=== PATIENT | male | born 1985 | race African-American/Black ===

== ENCOUNTER 2016-10-05 08:03 | Emergency (ER) | payer OTHER ==
[~2016-10-05] VITALS: Ht 188 cm; Wt 118.9 kg
[~2016-10-05 08:03] MED LIST: CARDI-OMEGA1000 MG PO; CROHNS MED PO; HUMIRA40 MG/0.1 SC; K-DUR 10 MEQ T10 MEQ PO; LEVAQUIN 750MG750 M1 PO; MAGNESIUM250 M1 PO; MULTI VITAMINS1 TAB PO; NORCO 325 MG-51 TAB PO; PHARMASSURE ZIN50 MG PO; PHENERGAN 25 TA25 MG PO; PREDNISONE20 MG PO; PROAIR HFA0.09 MG/AC IH; TUSS PO; VENTOLIN0.09 MG IH; VITAMIND3 5000 PO; ZOFRAN 4MG T4 MG/TAB PO; ZOFRAN ODT4 MG PO
[2016-10-05 08:07] VITALS: TEMP 97.7
[2016-10-05 08:42] LABS: BASO # 0.1 (0.0-0.2); BASO % 1.8 % (0.0-2.0); EOS # 0.1 (0.0-0.7); GRAN # 1.2 (1.4-6.5); GRAN % 36.4 % (42.2-75.2); HEMATOCRIT 40.5 % (42.0-52.0); HEMOGLOBIN 12.7 g/dl (13.5-18.0); LYMPH # 1.7 (1.2-3.4); LYMPH % 51.6 % (20.0-51.0); MEAN CELL VOLUME 76 fl (80.0-100.0); MEAN CORPUSCULAR HEMOGLOBIN 24 pg (27.0-31.0); MEAN CORPUSCULAR HGB CONC 31 g/dl (33.0-37.0); MEAN PLATELET VOLUME 10.4 fl (7.4-10.4); MONO # 0.2 (0.1-0.6); MONO % 6.9 % (1.7-9.3); PLATELET COUNT 257 K/mm3 (130-400); RED BLOOD COUNT 5.35 M/mm3 (4.20-5.60); REDCELL DISTRIBUTION WIDTH-CV 14.1 % (11.5-14.5); WHITE BLOOD COUNT 3.4 K/mm3 (4.8-10.8)
[2016-10-05 08:51] LABS: ADJUSTED CALCIUM 9.4 mg/dL (8.4-10.2); ALBUMIN 4.9 gm/dL (3.5-5.0); BILIRUBIN,TOTAL 0.6 mg/dL (0.0-1.0); CALCIUM 10.1 mg/dL (8.4-10.2); CREATININE, serum 1.23 mg/dL (0.66-1.25); POTASSIUM 4.3 mmol/L (3.4-5.0); TOTAL PROTEIN 8.1 gm/dL (6.4-8.2)
[2016-10-05 08:58] LABS: PH 6 (5-8); SQUAMOUS EPITHELIAL None Seen /hpf; URINE APPEARANCE Clear; URINE BACTERIA None Seen /hpf; URINE BILIRUBIN Negative (NEGATIVE); URINE BLOOD Negative (NEGATIVE); URINE COLOR Yellow; URINE GLUCOSE Negative (NEGATIVE); URINE KETONE Negative (NEGATIVE); URINE RBC 0-2 /hpf; URINE UROBILINOGEN Negative (NEGATIVE); URINE WBC 0-2 /hpf
[2016-10-05] MEDS ORDERED: NORCO 325 MG-51 TAB PO (10:08)
[2016-10-05] MEDS ORDERED: BENTYL 20MG20 MG/TAB PO (10:08)
[2016-10-05 10:28] VITALS: BP 153/98; PULSE 65
== END 2016-10-05 10:33 | disposition home or self-care (01) ==
LOC: COL.ER 08:03
PROVIDERS: Nurse Practitioner
DX: R10.12 Left upper quadrant pain (principal); K50.90 Crohn's disease, unspecified, without complications
CPT/HCPCS: J2270; J2405; J2930; J7030; Q9967

== ENCOUNTER 2016-11-15 11:36 | Emergency (ER) | payer BC, OTHER ==
[~2016-11-15] VITALS: Ht 188 cm; Wt 113.6 kg
[~2016-11-15 11:36] MED LIST changes: +BENTYL 20MG20 MG/TAB PO
[2016-11-15 11:40] VITALS: TEMP 98
[2016-11-15 12:31] LABS: ADJUSTED CALCIUM 9.6 mg/dL (8.4-10.2); ALBUMIN 4.9 gm/dL (3.5-5.0); BILIRUBIN,TOTAL 0.6 mg/dL (0.0-1.0); CALCIUM 10.3 mg/dL (8.4-10.2); CREATININE, serum 1.27 mg/dL (0.66-1.25); POTASSIUM 4.2 mmol/L (3.4-5.0); TOTAL PROTEIN 8.4 gm/dL (6.4-8.2)
[2016-11-15 12:36] LABS: BASO # 0.1 (0.0-0.2); EOS # 0.1 (0.0-0.7); EOS % 1.9 % (0-4.0); GRAN # 2.6 (1.4-6.5); GRAN % 53.6 % (42.2-75.2); HEMATOCRIT 41.3 % (42.0-52.0); HEMOGLOBIN 12.8 g/dl (13.5-18.0); LYMPH # 1.8 (1.2-3.4); LYMPH % 37.9 % (20.0-51.0); MEAN CELL VOLUME 76 fl (80.0-100.0); MEAN CORPUSCULAR HEMOGLOBIN 24 pg (27.0-31.0); MEAN CORPUSCULAR HGB CONC 31 g/dl (33.0-37.0); MEAN PLATELET VOLUME 11.4 fl (7.4-10.4); MONO # 0.3 (0.1-0.6); MONO % 5.4 % (1.7-9.3); PLATELET COUNT 267 K/mm3 (130-400); RED BLOOD COUNT 5.43 M/mm3 (4.20-5.60); REDCELL DISTRIBUTION WIDTH-CV 13.8 % (11.5-14.5); WHITE BLOOD COUNT 4.8 K/mm3 (4.8-10.8)
[2016-11-15 12:56] LABS: PH 5 (5-8); SQUAMOUS EPITHELIAL None Seen /hpf; URINE APPEARANCE Clear; URINE BACTERIA None Seen /hpf; URINE BILIRUBIN Negative (NEGATIVE); URINE BLOOD Negative (NEGATIVE); URINE COLOR Yellow; URINE GLUCOSE Negative (NEGATIVE); URINE KETONE Negative (NEGATIVE); URINE UROBILINOGEN Negative (NEGATIVE); URINE WBC 0-2 /hpf
[2016-11-15] MEDS ORDERED: PREDNISONE20 MG PO (13:06)
[2016-11-15 13:29] VITALS: BP 111/71; PULSE 75
== END 2016-11-15 13:31 | disposition home or self-care (01) ==
LOC: COL.ER 11:36
PROVIDERS: Family Medicine
DX: K50.90 Crohn's disease, unspecified, without complications (principal)
CPT/HCPCS: J1170; J2405; J2550; J7030; Q9967

== ENCOUNTER 2019-02-18 08:06 | Emergency (ER) | payer OTHER ==
[~2019-02-18] VITALS: Ht 188 cm; Wt 145.5 kg
[2019-02-18 08:41] LABS: COLLECTION METHOD CLEAN CATCH
[2019-02-18] MEDS ORDERED: NORVASC2.5 MG PO (08:43)
[2019-02-18] MEDS ORDERED: KLONOPIN 1MG1 MG PO (08:44)
[2019-02-18] MEDS ORDERED: FERROUS SU325 MG/TAB PO (08:45)
[2019-02-18] MEDS ORDERED: PROZAC40 MG PO (08:46)
[2019-02-18] MEDS ORDERED: LEVOXYL0.125 MG PO (08:47)
[2019-02-18] MEDS ORDERED: PENTASA250 MG PO (08:49)
[2019-02-18 08:50] LABS: BASO % 0.8 % (0.0-2.0); EOS # 0.1 (0.0-0.7); EOS % 2.9 % (0-4.0); GRAN # 2.1 (1.4-6.5); GRAN % 42.3 % (42.2-75.2); HEMATOCRIT 43.5 % (42.0-52.0); HEMOGLOBIN 13.7 g/dl (13.5-18.0); LYMPH # 2.2 (1.2-3.4); LYMPH % 45.2 % (20.0-51.0); MEAN CELL VOLUME 76 fl (80.0-100.0); MEAN CORPUSCULAR HEMOGLOBIN 24 pg (27.0-31.0); MEAN CORPUSCULAR HGB CONC 32 g/dl (33.0-37.0); MONO # 0.4 (0.1-0.6); MONO % 8.2 % (1.7-9.3); PLATELET COUNT 252 K/mm3 (130-400); RED BLOOD COUNT 5.74 M/mm3 (4.20-5.60); REDCELL DISTRIBUTION WIDTH-CV 14.5 % (11.5-14.5)
[2019-02-18] MEDS ORDERED: GLUCOPHAGE500 MG/TAB PO (08:50)
[2019-02-18] MEDS ORDERED: PRIL40 PO (08:51)
[2019-02-18] MEDS ORDERED: MULTI VITAMINS1 TAB PO (08:51)
[2019-02-18] MEDS ORDERED: MIRALAX PA17 GM/Dose PO (08:52)
[2019-02-18] MEDS ORDERED: MINIPRESS 1M1 MG/CAP PO (08:53)
[2019-02-18 08:55] LABS: MUCOUS Present /lpf; PH 5 (5-8); SQUAMOUS EPITHELIAL 0-2 /hpf; URINE APPEARANCE Clear; URINE BACTERIA None Seen /hpf; URINE BILIRUBIN Negative (NEGATIVE); URINE BLOOD Negative (NEGATIVE); URINE COLOR Yellow; URINE GLUCOSE Negative (NEGATIVE); URINE KETONE Negative (NEGATIVE); URINE LEUKOCYTE ESTERASE Negative (NEGATIVE); URINE NITRATE Negative (NEGATIVE); URINE PROTEIN(semi-quant) Negative (NEGATIVE); URINE RBC 0-2 /hpf; URINE UROBILINOGEN Negative (NEGATIVE)
[2019-02-18] MEDS ORDERED: DOS PO (08:55)
[2019-02-18] MEDS ORDERED: [UNRECOGNIZED DRUG - OTHER] PO (08:55)
[2019-02-18] MEDS ORDERED: ZOLOFT 100MG100 MG PO (08:55)
[2019-02-18] MEDS ORDERED: AMBIEN CR 12.12.5 MG PO (08:56)
[2019-02-18] MEDS ORDERED: ZOCOR 10MG10 MG PO (08:56)
[2019-02-18 09:00] LABS: ALBUMIN 4.6 gm/dL (3.5-5.0); BILIRUBIN,TOTAL 0.5 mg/dL (0.0-1.0); C-REACTIVE PROTEIN 0.7 mg/dL (0.0-0.9); CALCIUM 9.5 mg/dL (8.4-10.2); CREATININE, serum 0.99 (0.66-1.25); POTASSIUM 4.3 mmol/L (3.4-5.0); TOTAL PROTEIN 8.3 gm/dL (6.4-8.2)
[2019-02-18] MEDS ORDERED: ENTOCORT EC3 MG PO (09:50)
[2019-02-18 10:00] VITALS: BP 154/100; PULSE 78; TEMP 97.7
== END 2019-02-18 10:00 | disposition home or self-care (01) ==
LOC: COL.ER 08:06
PROVIDERS: Physician Assistant
DX: K52.9 Noninfective gastroenteritis and colitis, unspecified (principal); K50.90 Crohn's disease, unspecified, without complications; I10 Essential (primary) hypertension; F17.210 Nicotine dependence, cigarettes, uncomplicated; F43.10 Post-traumatic stress disorder, unspecified; E78.5 Hyperlipidemia, unspecified; E11.9 Type 2 diabetes mellitus without complications; Z79.84 Long term (current) use of oral hypoglycemic drugs; Z90.49 Acquired absence of other specified parts of digestive tract
CPT/HCPCS: J2405; J7030